=== PATIENT | male | born 1995 | race Caucasian/White ===

== ENCOUNTER 2016-07-14 00:19 | Observation (INO) | payer BC, OTHER ==
[~2016-07-14] VITALS: Ht 177.8 cm; Wt 78.6 kg
[2016-07-14 00:59] LABS: BASO % 1.1 %; COMPLETE YES; EOS % 0.3 %; HEMATOCRIT 42.7 % (42-52); IG% 0.1 %; LYMPH % 28.5 %; LYMPH ABS # 2.68 K/uL (1.2-3.4); MEAN CORPUSCULAR HEMOGLOBIN 30.6 pg (25-34); MEAN CORPUSCULAR HGB CONC 34.4 g/dl (32-36); MEAN PLATELET VOLUME 8.8 fL (7.4-10.4); MONO % 6.3 %; NEUT % 63.7 %; PLATELET COUNT 248 K/uL (130-400); WHITE BLOOD COUNT 9.41 K/uL (4.8-10.8)
[2016-07-14 01:11] LABS: PARTIAL THROMBOPLASTIN RATIO 1.1; PROTHROMBIN TIME (PATIENT) 10.9 SECONDS (9.0-12.0)
[2016-07-14 01:18] LABS: BUN/CREATININE RATIO 17.1 (10-20); CALCIUM 8.4 mg/dl (8.5-10.1); CREATININE 0.89 mg/dl (0.60-1.40); POTASSIUM 3.1 mmol/L (3.5-5.1)
[2016-07-14] MEDS ORDERED: ONDANSETRON INJ 2 MG/ML 2 ML VIAL IV STA (01:29)
[2016-07-14] MEDS ORDERED: MULTI-VITAMIN INFUSION INJ 10 ML, THIAMINE HCL INJ 100 MG, FoLIC ACID INJ 1 MG in SODIU... IV ONE (01:30)
[2016-07-14] MEDS ORDERED: POTASSIUM CHLORIDE 10 MEQ / 100ML WTR IV STA (02:01)
--- NOTE | 2016-07-14 02:26 | EMERGENCY ROOM VISIT NOTE ---
History First contact with patient: 00:23 Chief Complaint: FALL Stated Complaint: FELL DOWN STEPS,LACK OF RESPONSE History of Present Illness The patient is a 20 year old male who presents to the Emergency Room for evaluation of fall down 10 stairs that happened 30 minutes prior to arrival. The patient is accompanied by 4 male friends who state the patient has been drinking tonight. They are unsure of the amount of alcohol that he drank. The patient does not have reportedly medical problems. The fall was witnessed, and there was no immediate loss of consciousness or seizure-like activity after the injury. The patient smells of alcohol and history is limited secondary to the patient's status. Review of Systems More than 10 systems were reviewed to the best of our ability and otherwise negative with the exception of history of present illness. Past Medical/Surgical History Medical Problems: (1) Acute alcohol intoxication No reported chronic medical disease Family History No pertinent family history Social History Smoking Status: Never Smoker Occupation Status: [employer] student Current/Historical Medications Unable to Obtain Active Prescriptions or Reported Meds Physical Exam Vital Signs Date Time Temp Pulse Resp B/P Pulse Ox O2 Delivery O2 Flow Rate FiO2 07/14/16 02:11 93 16 110/49 94 Room Air 07/14/16 01:07 96 16 122/69 93 Room Air 07/14/16 00:35 96 Room Air 07/14/16 00:33 36.7 108 16 133/67 96 Room Air 07/14/16 00:32 103 07/14/16 00:31 96 Room Air 07/14/16 00:21 36.4 105 16 122/69 95 Room Air Physical Exam VITALS: Vitals are noted on the nurse's note and reviewed by myself. Vital signs stable. GENERAL: Obtunded-appearing white male who withdraws to painful stimuli. He smells of alcohol and urine. GCS is 6 (E1V1M4) HEAD: Small abrasion and hematoma appreciated over the posterior occiput. No laceration noted. No arellano sign or raccoon eyes. EARS: External ear normal. External auditory canals clear, tympanic membranes pearly aguilar without erythema or effusion bilaterally. No hemotympanum EYES: Pupils equal round and reactive to light and accommodation. Conjunctivae without injection, sclerae without icterus. No hyphema NOSE: Patent, turbinates without inflammation or discharge. No epistaxis MOUTH: Mucous membranes moist. Pharynx without erythema, blood, or exudate. Uvula midline. Airway patent. NECK: Hard cervical spine collar in place. HEART: Regular rate and rhythm without murmurs gallops or rubs. LUNGS: Clear to auscultation bilaterally without wheezes, rales or rhonchi. No retractions or accessory muscle use. ABDOMEN: Positive normal bowel sounds x 4. Soft without appreciable mass. MUSCULOSKELETAL: No gross deformity of the extremities. The patient does spontaneously move arms and legs. Abrasion appreciated over the left knee. NEURO: Patient was not alert or oriented to person place and time. He does appear altered. Medical Decision & Procedures ER Provider Diagnostic Interpretation: Preliminary Findings Only See Final Report For Complete Findings CT HEAD: No calvarial or brain injury. CT C SPINE: No fracture Laboratory Results 07/14/16 00:42 Red Blood Count 4.80, Mean Corpuscular Volume 89.0, Mean Corpuscular Hemoglobin 30.6, Mean Corpuscular Hemoglobin Concent 34.4, Mean Platelet Volume 8.8, Neutrophils (%) (Auto) 63.7, Lymphocytes (%) (Auto) 28.5, Monocytes (%) (Auto) 6.3, Eosinophils (%) (Auto) 0.3, Basophils (%) (Auto) 1.1, Neutrophils # (Auto) 6.00, Lymphocytes # (Auto) 2.68, Monocytes # (Auto) 0.59, Eosinophils # (Auto) 0.03, Basophils # (Auto) 0.10 07/14/16 00:42 Test 07/14/16 00:42 07/14/16 00:44 White Blood Count 9.41 K/uL (4.8-10.8) Red Blood Count 4.80 M/uL (4.7-6.1) Hemoglobin 14.7 g/dL (14.0-18.0) Hematocrit 42.7 % (42-52) Mean Corpuscular Volume 89.0 fL (80-100) Mean Corpuscular Hemoglobin 30.6 pg (25-34) Mean Corpuscular Hemoglobin Concent 34.4 g/dl (32-36) Platelet Count 248 K/uL (130-400) Mean Platelet Volume 8.8 fL (7.4-10.4) Neutrophils (%) (Auto) 63.7 % Lymphocytes (%) (Auto) 28.5 % Monocytes (%) (Auto) 6.3 % Eosinophils (%) (Auto) 0.3 % Basophils (%) (Auto) 1.1 % Neutrophils # (Auto) 6.00 K/uL (1.4-6.5) Lymphocytes # (Auto) 2.68 K/uL (1.2-3.4) Monocytes # (Auto) 0.59 K/uL (0.11-0.59) Eosinophils # (Auto) 0.03 K/uL (0-0.5) Basophils # (Auto) 0.10 K/uL (0-0.2) RDW Standard Deviation 39.2 fL (36.4-46.3) RDW Coefficient of Variation 12.3 % (11.5-14.5) Immature Granulocyte % (Auto) 0.1 % Immature Granulocyte # (Auto) 0.01 K/uL (0.00-0.02) Prothrombin Time 10.9 SECONDS (9.0-12.0) Prothromb Time International Ratio 1.0 (0.9-1.1) Activated Partial Thromboplast Time 29.5 SECONDS (21.0-31.0) Partial Thromboplastin Ratio 1.1 Anion Gap 11.0 mmol/L (3-11) Est Creatinine Clear Calc Drug Dose 137.8 ml/min Estimated GFR () 143.7 Estimated GFR (Non- 124.0 BUN/Creatinine Ratio 17.1 (10-20) Calcium Level 8.4 mg/dl (8.5-10.1) Ethyl Alcohol mg/dL 441.0 mg/dl (0-3) Medications Administered Medications (Trade) Dose Ordered Sig/Jordan Route Start Time Stop Time Status Last Admin Dose Admin Ondansetron HCl 4 mg 4 mg NOW STAT IV 07/14/16 01:29 07/14/16 01:30 DC 07/14/16 01:48 4 MG Multivitamins/ Thiamine HCl/ Folic Acid/Sodium Chloride (Mvi Infusion Inj/Vitamin B-1 Inj/Folvite Inj/ Nss 1000ml) 1,011.2 ml @ 200 mls/ hr Q5H4M ONCE IV 07/14/16 01:30 07/14/16 06:33 07/14/16 02:33 200 MLS/HR Potassium Chloride (Kcl 10 Meq / Wtr) 10 meq NOW STAT IV 07/14/16 02:01 07/14/16 02:02 DC 07/14/16 02:08 10 MEQ ED Course Physical exam and history were performed. Nursing notes and EMR were reviewed. Patient appears to have fallen down 10 stairs prior to arrival. On examination the patient does have hours sign of injury. He does appear intoxicated with alcohol. His GCS is 6. IV access was established and labs were obtained. CT scans were performed and the patient was placed under alcohol precautions. The patient was reevaluated multiple times throughout the course of his stay. His blood work is as above and was reviewed. He does not have a significantly elevated white blood cell count, gross anemia, or bandemia. His potassium is slightly low, and this was repleted through his IV. His alcohol is markedly elevated at 441. CT scan of the head and neck do not show evidence of fracture or bleed. C-spine collar was removed. The patient continued to remain in stable condition here in the ER. Due to his markedly elevated alcohol and GCS of 6 he was felt unstable for discharge at this time. The case was discussed with the on-call hospitalist who agreed to evaluate the patient here in the department. Please see their dictation for further patient course, plan, and disposition. The chart was completed utilizing [employer] Speech Voice Recognition Software. Grammatical errors, random word insertions, pronoun errors, and incomplete sentences are an occasional consequence of this system due to software limitations, ambient noise, and hardware issues. Any formal questions or concerns about the content, text, or information contained within the body of this dictation should be directly addressed to the provider for clarification. . Medical Decision Differential diagnosis: Etiologies such as metabolic, infection, hypoglycemia, electrolyte abnormalities , cardiac sources, intracerebral event, toxicologic, neurologic, as well as others were entertained. Impression Primary Impression: Fall Additional Impressions: Contusion of multiple sites Alcohol intoxication Altered mental status Departure Information Prescriptions Unable to Obtain Active Prescriptions or Reported Meds Referrals No Doctor, Assigned (PCP) Patient Instructions [facility] Problem Qualifiers
[2016-07-14] MEDS ORDERED: ALUMINUM/MAGNESIUM/SIMETH (MAALOX MAX) 30 ML UDC PO PRN (02:30)
[2016-07-14] MEDS ORDERED: ACETAMINOPHEN 325 MG TAB PO PRN (02:30)
[2016-07-14] MEDS ORDERED: LORAZEPAM 2 MG/ML 1 ML VIAL IV PRN (02:30)
[2016-07-14] MEDS ORDERED: ONDANSETRON INJ 2 MG/ML 2 ML VIAL IV PRN (02:30)
--- NOTE | 2016-07-14 02:44 | History and Physical ---
History & Physical Date & Time of Service: Jul 14, 2016 at 02:31 Chief Complaint: Fell Down Steps,Lack Of Response Primary Care Physician: No Doctor, Assigned History of Present Illness Source: other (ED provider) The patient is a 20-year-old male, who was brought in by his friends. The patient is somnolent secondary to extreme alcohol intoxication, therefore does not provide any history and there are no friends or family members at this time. Provided collateral history. Information was gathered via sign out from the ED PAC. The patient was apparently at a alliance party tonight and had been drinking alcohol. Specific amount was not clear, though the friends and noted to the ED that he only had "a couple drinks". Later on in the night he fell down 10 steps, and was subsequently brought into the emergency department for further evaluation. Blood alcohol level in the ED was greater than 400. CT head and neck were fortunately unremarkable. The patient is sleeping at this time, and cannot provide any details on current symptoms. Past Medical/Surgical History No known medical history Family History No known family history Social History Smoking Status: Never Smoker Smokeless Tobacco Use: Unknown Drug Use: other (unknown) Occupational Status: [employer] student Home Medications Unable to Obtain Active Prescriptions or Reported Meds Review of Systems Review of systems could not be obtained as patient is somnolent secondary to alcohol intoxication Physical Exam Vital Signs Date Time Temp Pulse Resp B/P Pulse Ox O2 Delivery O2 Flow Rate FiO2 07/14/16 02:11 93 16 110/49 94 Room Air 07/14/16 01:07 96 16 122/69 93 Room Air 07/14/16 00:35 96 Room Air 07/14/16 00:33 36.7 108 16 133/67 96 Room Air 07/14/16 00:32 103 07/14/16 00:31 96 Room Air 07/14/16 00:21 36.4 105 16 122/69 95 Room Air General Appearance: WD/WN, no apparent distress Head: normocephalic, atraumatic Eyes: normal inspection, EOMI Neck: supple, no adenopathy, no JVD Respiratory/Chest: lungs clear, no respiratory distress Cardiovascular: regular rate, rhythm, no gallop, no murmur Abdomen/GI: normal bowel sounds, non tender, soft Back: no CVA tenderness, no muscle spasm Extremities/Musculoskelatal: no calf tenderness, no pedal edema Neurologic/Psych: + pertinent finding (asleep, and not arousable. Patient does withdraw unchanged sleeping position to sternal rubbing) Skin: normal color, warm/dry, no rash Lymphatic: no adenopathy Diagnostics Laboratory Results Results Past 24 Hours Test 07/14/16 00:42 07/14/16 00:44 Range/Units White Blood Count 9.41 4.8-10.8 K/uL Red Blood Count 4.80 4.7-6.1 M/uL Hemoglobin 14.7 14.0-18.0 g/dL Hematocrit 42.7 42-52 % Mean Corpuscular Volume 89.0 80-100 fL Mean Corpuscular Hemoglobin 30.6 25-34 pg Mean Corpuscular Hemoglobin Concent 34.4 32-36 g/dl Platelet Count 248 130-400 K/uL Mean Platelet Volume 8.8 7.4-10.4 fL Neutrophils (%) (Auto) 63.7 % Lymphocytes (%) (Auto) 28.5 % Monocytes (%) (Auto) 6.3 % Eosinophils (%) (Auto) 0.3 % Basophils (%) (Auto) 1.1 % Neutrophils # (Auto) 6.00 1.4-6.5 K/uL Lymphocytes # (Auto) 2.68 1.2-3.4 K/uL Monocytes # (Auto) 0.59 0.11-0.59 K/uL Eosinophils # (Auto) 0.03 0-0.5 K/uL Basophils # (Auto) 0.10 0-0.2 K/uL RDW Standard Deviation 39.2 36.4-46.3 fL RDW Coefficient of Variation 12.3 11.5-14.5 % Immature Granulocyte % (Auto) 0.1 % Immature Granulocyte # (Auto) 0.01 0.00-0.02 K/uL Prothrombin Time 10.9 9.0-12.0 SECONDS Prothromb Time International Ratio 1.0 0.9-1.1 Activated Partial Thromboplast Time 29.5 21.0-31.0 SECONDS Partial Thromboplastin Ratio 1.1 Sodium Level 142 136-145 mmol/L Potassium Level 3.1 3.5-5.1 mmol/L Chloride Level 104 98-107 mmol/L Carbon Dioxide Level 27 21-32 mmol/L Anion Gap 11.0 3-11 mmol/L Blood Urea Nitrogen 15 7-18 mg/dl Creatinine 0.89 0.60-1.40 mg/dl Est Creatinine Clear Calc Drug Dose 137.8 ml/min Estimated GFR () 143.7 Estimated GFR (Non- 124.0 BUN/Creatinine Ratio 17.1 10-20 Random Glucose 116 70-99 mg/dl Calcium Level 8.4 8.5-10.1 mg/dl Ethyl Alcohol mg/dL 441.0 0-3 mg/dl Diagnostic Radiology Normal CT head and neck Impression Assessment and Plan 20-year-old male admitted for severe alcohol oxygenation. Unfortunately with a blood alcohol greater than 400, the patient is a risk for multiple sequelae including aspiration, seizures, dehydration, electrolytes abnormalities. As such the patient will be admitted for further monitoring. Our plan for him is as follows Acute alcohol intoxication - Baseline quantities of alcohol are a bit unobtainable at this time; patient to be treated as chronic alcohol abuser until further history can be obtained - Daily banana bag - Lorazepam 1 mg every 2 hours, when necessary, for anxiety or agitation - D5 normal saline with 20mEq KCl - Zofran for nausea Hypokalemia - K 3.1 on arrival; 10 MB every KCl given in the ED - Replete with IV fluids as above - Repeat BMP with morning labs DVT prophylaxis - None indicated at this time Code Status - Unable to provide CODE STATUS - Placed as default level I code Disposition - [facility] Resident Physician Supervision Note: Pt examined independently. I discussed the case with the resident and agree with the findings and plan as documented in the note. Any exceptions or clarifications are listed here: 20 y/o M presents intoxicated following fall down flight of stairs. He is unable to provide a history due to intoxication. We do not know his social history therefore and will have to treat for alcoholism. He did receive a CT head and neck which were negative for significant injury. OE - minimally conscious pupils equal//reactive S1.2 R CTAB P: IVF thiamine, Folate Ativan PRN only Consider repeat CT with any change in status. No C/C/E Documented By: Dario Kearns Level of Care Med/Surg Resuscitation Status FULL RESUSCITATION VTE Prophylaxis VTE Risk Assessment Done? Y/N: Yes Risk Level: Moderate Given or contraindicated: Treatment not indicated
[2016-07-14 02:57] VITALS: O2SAT 97
[2016-07-14 03:10] VITALS: BP 125/70; PULSE 115; TEMP 36.4; O2SAT 100
[2016-07-14 03:30] VITALS: BP 125/70; PULSE 115; TEMP 36.4; Ht 177.8 cm; Wt 78.6 kg
[2016-07-14] MEDS ORDERED: D5NSS + 20MEQ KCL 1,000 ML IV SCH (05:00)
[2016-07-14] MEDS ORDERED: IV FLUIDS COMPLETED PRN (05:00)
[2016-07-14] MEDS ORDERED: LORAZEPAM INJ 1 MG in SYRINGE 0.5 ML IV PRN (05:00)
--- NOTE | 2016-07-14 06:32 | DIAGNOSTIC IMAGING REPORT ---
CT HEAD WITHOUT CONTRAST (CT) CLINICAL HISTORY: Head pain status post head trauma. Fall down stairs. COMPARISON STUDY: No previous studies for comparison. TECHNIQUE: Axial CT of the brain is performed from the vertex to the skull base. IV contrast was not administered for this examination. CT DOSE: 1057.85 mGy.cm FINDINGS: No intra or extra-axial mass lesions are visualized. There is no CT evidence of acute cortical infarction. There is no evidence of midline shift. There is no acute hemorrhage. No calvarial fractures are visualized. There is no evidence of pathologic ventricular dilatation. There is mild maxilla sinus mucosal thickening. IMPRESSION: Normal noncontrast head CT. Electronically signed by: Mustapha Marrero M.D. 07/14/2016 6:30 AM Dictated Date/Time: 07/14/2016 6:29 AM
--- NOTE | 2016-07-14 07:16 | DIAGNOSTIC IMAGING REPORT ---
CERVICAL SPINE CT CT DOSE: HISTORY: EVALUATE FOR TRAUMA; ALCOHOL OVERDOSE TECHNIQUE: Multiaxial CT images of the cervical spine were performed and reformatted in the sagittal and coronal plane without the use of contrast. COMPARISON: None. FINDINGS: No fractures. No subluxation. Prevertebral soft tissues and the C1-C2 interval are intact. No pneumothorax. Mild reversal of the normal lordotic curvature with new lower cervical spine. Mild levoscoliosis which may be positional. IMPRESSION: No fractures within the cervical spine. Electronically signed by: Johan Petersen M.D. 07/14/2016 7:14 AM Dictated Date/Time: 07/14/2016 7:12 AM
[2016-07-14 07:20] VITALS: BP 103/60; PULSE 116; TEMP 36.4; O2SAT 99
[2016-07-14] MEDS ORDERED: MULTI-VITAMIN INFUSION INJ 10 ML, THIAMINE HCL INJ 100 MG, FoLIC ACID INJ 1 MG in SODIU... IV SCH (08:00)
[2016-07-14 09:56] LABS: BUN/CREATININE RATIO 12.4 (10-20); CALCIUM 8.1 mg/dl (8.5-10.1); CREATININE 0.94 mg/dl (0.60-1.40); POTASSIUM 3.6 mmol/L (3.5-5.1)
[2016-07-14 11:21] VITALS: BP 119/68; PULSE 102; TEMP 36.6; O2SAT 99
--- NOTE | 2016-07-14 11:40 | Discharge Instructions ---
Discharge Instructions Date of Service Jul 14, 2016. Admission Reason for Admission: Acute Alcohol Intoxication Discharge Discharge Diagnosis / Problem: acute alcohol toxicity Discharge Goals Goal(s): Decrease discomfort, Improve function, Increase independence, Improve disease control, Improve nutritional status, Learn about illness, Diagnostic testing, Therapeutic intervention, Screening, Prevent Disease Progression, Specific goals Activity Recommendations Activity Limitations: resume your previous activity Lifting Limitations: none Exercise/Sports Limitations: none Shower/Bathe: no limitations . Instructions / Follow-Up Instructions / Follow-Up Refrain from all alcohol. Follow up at [facility] for continued medication management and to establish with alcohol counseling. If you experience fever, chest pain, shortness of breath nausea.vomiting, headache, visual changes, loss of consciousness, please return to Emergency dept for evaluation. Current Hospital Diet Patient's current hospital diet: Regular Diet Discharge Diet Recommended Diet: Regular Diet Pending Studies Studies pending at discharge: no List of pending studies: None Medical Emergencies . Who to Call and When: Medical Emergencies: If at any time you feel your situation is an emergency, please call 911 immediately. . Non-Emergent Contact Non-Emergency issues call your: Primary Care Provider Call Non-Emergent contact if: temperature is above 100.5, your pain is worsening, your pain is unusual for you, your pain is concerning you, you have any medication questions . . "Provider Documentation" section prepared by Lion Renner. . VTE Core Measure Inpt VTE Proph given/why not?: Treatment not indicated Resident Tracking Resident Involvement: Resident Care Provided Care Provided: Adult Hospital Medicine
[2016-07-14] MEDS ORDERED: SERT25TA PO (11:55)
[2016-07-14 12:09] VITALS: BP 119/68; PULSE 102; TEMP 36.6; O2SAT 99
--- NOTE | 2016-07-14 12:20 | Discharge Summary ---
Discharge Summary Date of Service Jul 14, 2016. 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 The patient was solid secondary to alcohol intoxication, therefore there was limited information regarding a history as there were no friends or family available to time of the admission physical. The patient was at a green party where he was drinking. This specific amount was not clear, though friends had described emergency department at the patient only had a "couple drinks." At some point during the night he fell down approximately 10 steps subsequently brought to the emergency department for further evaluation. Blood level was found to be greater than 400 mg/dL. A CT scan of the head and neck was unremarkable. Given the patient's intoxication he was admitted to the hospital for monitoring. Physical Exam (per Admitting): General Appearance: WD/WN, no apparent distress Head: normocephalic, atraumatic Eyes: normal inspection, EOMI Neck: supple, no adenopathy, no JVD Respiratory/Chest: lungs clear, no respiratory distress Cardiovascular: regular rate, rhythm, no gallop, no murmur Abdomen/GI: normal bowel sounds, non tender, soft Back: no CVA tenderness, no muscle spasm Extremities/Musculoskelatal: no calf tenderness, no pedal edema Neurologic/Psych: + pertinent finding (asleep, and not arousable. Patient does withdraw unchanged sleeping position to sternal rubbing) Skin: normal color, warm/dry, no rash Lymphatic: no adenopathy Physical Exam (per Admitting): Upon discharge Alert and oriented no acute distress. Nontoxic appearance. His speech is clear and coherent. His affect is appropriate. He voiced understanding of the discussion noted below. HEENT unremarkable. No cervical spine tenderness with palpation. Full range of motion of the neck without difficulty. Trachea is midline. Heart regular rate and rhythm. Lungs clear. Abdomen soft nontender. Moves all extremities well with purpose. He is and toward without gait dysfunction. Hospital Course The patient was admitted to the general medical floor. He was given IV fluids. Electrolytes were rechecked in the morning and were unremarkable. Disposition noon, I examined the patient with Dr. Renner. The patient denied any complaints. Specifically, he denied headache or visual changes. He denied any pain of his neck, chest to include rib cage, or extremities. He actually felt admittedly well and desired discharge. He had tolerated breakfast without any nausea or vomiting. I had a discussion with the patient regarding the risk of drinking, including the dangers of binge drinking. I emphasized the patient should refrain from all drinking. I described to him the available resources on campus to help him with this problem. I discussed the risk to both his health and academic and professional career based on the sequelae I have seen from other patients in similar situations. I think he understands that he was fortunate to escape this episode without any medical or legal sequelae. Total time spent on discharge = This includes examination of the patient, discharge planning, medication reconciliation, and communication with other providers. Discharge Instructions Emphasized the need to follow-up with [facility] for continued management of his Zoloft. This was not a new medication but previously prescribed about 2 weeks ago. He was not included in the admission as this information was not obtainable. Discussed the resources available at [facility] for alcoholism and binge drinking. A note was provided to excuse him from examinations and classes today.
== END 2016-07-14 13:30 | disposition home or self-care (01) ==
LOC: ENRESERVDT → ENRESERVTM → C.EDB 00:21 → C.4E 02:28
PROVIDERS: ADMIT Student in an Organized Health Care Education/Training Program; ATTEND Family Medicine
DX: F10.129 Alcohol abuse with intoxication, unspecified (principal); E87.6 Hypokalemia; T14.8 Other injury of unspecified body region; W19.XXXA Unspecified fall, initial encounter